=== PATIENT | female | born 1955 | race Caucasian/White ===

== ENCOUNTER 2025-02-20 12:53 | Outpatient (AMB) | payer MEDICARE, SELFPAY ==
--- NOTE | 2025-02-20 13:26 | MHC.OFFVIS ---
Intake Visit Reasons: AD HPI Comments Details: The patient is a 69-year-old female establishing care with a new neurologist for progressive memory loss. Her daughter reports that symptoms began approximately two years ago with increased frequency of misplacing items, which caused the patient distress. About a year and a half ago, the patient experienced an acute episode where she awoke with no memory of the previous day, prompting a hospital visit. She was initially seen at [facility] in [place] and then transferred to [facility] in [place], [place], where she underwent extensive testing and was diagnosed with transient global amnesia. Subsequent testing has reportedly been indicative of mild dementia. The patient was previously evaluated at [facility] as a potential candidate for an infusion therapy. However, she did not proceed with the treatment due to logistical challenges and because the clinician at the time suggested the benefits would not be significant enough. 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 Her family is seeking to establish care with a neurologist in case her condition progresses, but is not necessarily seeking more testing or treatment at this time. Past workup included a PET scan and neuropsychological testing. She has no history of alcohol or recreational drug use. 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 Review of Systems Narrative Constitutional:?No fever, chills, fatigue, weight loss, or night sweats. HEENT:? Complain of sinus problems Cardiovascular:?No chest pain, palpitations, orthopnea, PND, or leg swelling. Respiratory:?No cough, shortness of breath, wheezing, or hemoptysis. Gastrointestinal:? Complain of constipation Genitourinary:?No dysuria, frequency, incontinence, or hematuria. Musculoskeletal:? Complain of joint pains Neurological:? Complain of forgetfulness and headaches Psychiatric:?No anxiety, depression, mood swings, sleep disturbance, or hallucinations. Endocrine:?No heat/cold intolerance, polydipsia, polyuria, or hair/skin changes. Hematologic/Lymphatic:? Complain of bruising Integumentary (Skin):? Complain of rash Allergic/Immunologic:?No seasonal allergies, hives, or recurrent infections. Physical Exam Neuro Other: Mental Status: Alert and oriented to person, place, and time. Normal attention. Normal spontaneous speech, fluency, and comprehension. No obvious issues with mood and memory. Affect is appropriate. Raymond assessment score was 19, mini-mental status score was 26. Cranial Nerves: CN II: Visual wyatt full to confrontation, visual acuity intact. CN III, IV, : Pupils equal, round, reactive to light and accommodation. Extraocular movements are normal. CN V: Facial sensation is normal. CN VII: Facial movements symmetrical. CN VIII: Hearing intact to bedside conversation is normal. CN IX, X: Palate elevates symmetrically. CN XI: Shoulder shrug and head turn symmetrical. CN XII: Tongue midline without atrophy or fasciculations. Motor: Bulk and tone normal in all extremities. No significant muscle weakness in arms and legs. No drift. Reflexes: Deep tendon reflexes 2+ and symmetric. Plantar response down-going bilaterally. Coordination: Qcubyv-hy-xrqb and dnyy-ot-resy testing normal. No dysmetria. Gait and Station: No obvious gait abnormality. No ataxia or instability. Sensory: Intact to light touch, pinprick, and vibration. Romberg is negative. Extrapyramidal: Full facial expressions and blinking. No rigidity. Movements are appropriate with no tremor or abnormality. Speech: Normal; no dysarthria or tremor. Assessment & Plan Assessment & Plan (1) Alzheimer disease: Code(s): G30.9 - Alzheimer's disease, unspecified; F02.80 - Dementia in other diseases classified elsewhere, unspecified severity, without behavioral disturbance, psychotic disturbance, mood disturbance, and anxiety Category: Medical Plan Impression: Alzheimer dementia Recommendations: I discussed with the patient and her daughter, who is her healthcare proxy, that the patient's presentation is highly suggestive of Alzheimer's disease. I explained that while she did not proceed with infusion therapy in the past, I believe she is an ideal candidate for such treatment now, as it can slow the progression of the disease. I outlined that before starting any therapy, I must review her prior brain MRI and PET scan to confirm the diagnosis, which is a requirement for these new medications. I described the treatment as a once-monthly IV infusion and detailed the potential risks, including a 3-6% risk of stroke-like lesions, which are often asymptomatic. My strong recommendation is to pursue this treatment to slow her decline, but the final decision rests with her and her family. I also addressed the patient's mood and frustration related to her cognitive deficits by prescribing sertraline 25 mg daily. We will meet in one to two weeks to review her records and finalize our plan. Medications: New sertraline 25 mg PO DAILY 90 tabs 0RF Coding Level of Care Code New Pt Level 5 (14028) Diagnoses Alzheimer disease G30.9; F02.80 Time Spent (min) 60
== END 2025-02-20 14:05 | disposition home or self-care (01) ==
LOC: HO.HSM 12:53
PROVIDERS: PCP Nurse Practitioner; Visit Provider Psychiatry & Neurology Neurology
DX: G30.9 Alzheimer's disease, unspecified (principal); F02.80 Dementia in other diseases classified elsewhere, unspecified severity, without behavioral disturbance, psychotic disturbance, mood disturbance, and anxiety
CPT/HCPCS: 99205

== ENCOUNTER → 2025-02-20 12:53 | Outpatient (BNVA) | payer MEDICARE, SELFPAY | PROVIDERS: PCP Nurse Practitioner; Visit Provider Psychiatry & Neurology Neurology | DX: G30.9 Alzheimer's disease, unspecified (principal); F02.83 Dementia in other diseases classified elsewhere, unspecified severity, with mood disturbance | CPT/HCPCS: 99202 ==

== ENCOUNTER 2025-02-28 10:14 | Outpatient (REF) | payer MEDICARE, SELFPAY ==
[2025-02-28 13:08] LABS: Alanine Aminotransferase 23 U/L (0-31); Albumin Level 4.6 g/dL (3.5-5.0); Alkaline Phosphatase 54 U/L (39-117); Anion Gap 12 (12-20); Aspartate Amino Transferase 26 U/L (5-31); Blood Urea Nitrogen 15 mg/dL (9-16); Calcium 9.2 mg/dL (8.4-10.2); Carbon Dioxide 27 mmol/L (22-29); Chloride 106 mmol/L (96-108); Estimated Glomerular Filt Rate 57; Potassium 3.9 mmol/L (3.3-5.1); Sodium 141 mmol/L (135-145); Total Protein 7.1 g/dL (6.5-8.0)
[2025-02-28 13:16] LABS: Thyroid Stimulating Hormone 0.59 uIU/mL (0.32-4.0)
[2025-02-28 13:37] LABS: Folate > 20.0 ng/mL (> or = 4.0); Vitamin B12 890 pg/mL (200-900)
== END 2025-02-28 10:15 | disposition home or self-care (01) ==
LOC: HO.LAB 10:14
PROVIDERS: PCP Nurse Practitioner; Visit Provider Psychiatry & Neurology Neurology
DX: G30.0 Alzheimer's disease with early onset (principal); F02.84 Dementia in other diseases classified elsewhere, unspecified severity, with anxiety
CPT/HCPCS: 36415; 80048; 80076; 82542; 82607; 82746; 84443

== ENCOUNTER 2025-02-28 10:14 | Outpatient (AMB) | payer MEDICARE, SELFPAY ==
--- NOTE | 2025-02-28 10:36 | MHC.OFFVIS ---
Intake Visit Reasons: follow up Allergies lovastatin (From Mevacor) Adverse Reaction (Mild, Verified 02/28/25 10:58) Back Pain Sulfa (Sulfonamide Antibiotics) Adverse Reaction (Unknown, Unverified 02/28/25 10:58) Muscle cramps HPI Comments Details: 69 years old woman with Alzheimer dementia with symptoms starting around 2022. She presents for follow-up to discuss imaging results and initiate treatment for Alzheimer's disease. An MRI and PET scan have confirmed the diagnosis of Alzheimer's disease, which is considered to be in the early stages. She recently tried a new medication, which initially caused some dizziness, but she has been advised to continue it at a low dose to help with associated anxiety. She reports generally sleeping well but had one recent night of poor sleep, waking at 4 a.m. Past diagnostic workup includes a PET scan in June and an MRI in October. She was previously considered for a clinical trial for an infusion medication but was not enrolled because genetic testing revealed she has two genes for Alzheimer's. She has a reported allergy to sulfa drugs dating back to childhood, though the specific reaction is unknown. Review of Systems Narrative - Neurological: Reports transient dizziness when starting a new medication. - Psychiatric: Reports anxiety. - Constitutional: Reports one recent episode of waking at 4 a.m. and being unable to return to sleep. - Allergic/Immunologic: Reports allergy to sulfa drugs. Physical Exam Neuro Other: Mental Status: Alert and oriented to person, place, and time. Normal attention. Normal spontaneous speech, fluency, and comprehension. Cranial Nerves: CN II: Visual wyatt full to confrontation, visual acuity intact. CN III, IV, : Pupils equal, round, reactive to light and accommodation. Extraocular movements are normal. CN V: Facial sensation is normal. CN VII: Facial movements symmetrical. CN VIII: Hearing intact to bedside conversation is normal. CN IX, X: Palate elevates symmetrically. CN XI: Shoulder shrug and head turn symmetrical. CN XII: Tongue midline without atrophy or fasciculations. Extrapyramidal: Full facial expressions and blinking. No rigidity. Movements are appropriate with no tremor or abnormality. Speech: Normal; no dysarthria or tremor. 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 Code(s): G30.9 - Alzheimer's disease, unspecified; F02.80 - Dementia in other diseases classified elsewhere, unspecified severity, without behavioral disturbance, psychotic disturbance, mood disturbance, and anxiety Category: Medical Plan The patient's MRI and PET scan results confirm a diagnosis of early-stage Alzheimer's disease. Though she was previously excluded from a clinical trial due to her genetic profile, she is a candidate for FDA-approved infusion therapies. It is recommended to initiate monthly infusions with Kisunla to slow disease progression. Risk of this type of treatment included stroke, brain bleed, which could be disabling or fatal were discussed. Chances of that was about 3-6%, based upon her genetic profile and I have ordered test for AP-E profile. Alternate would be not to treat with this type of medicine in which case this is a progressive illness resulting in worsening of cognitive symptoms. With this type of medicine, about 1/3 slowing can be expected. Prior to starting, the patient and her healthcare proxy will provide consent. Immediate lab work, including blood counts, liver functions, B12, and folate levels, will be ordered today, as these are required for insurance approval. A gene test will also be ordered to better quantify the risk associated with the medication and guide monitoring frequency. Treatment will involve a series of monitoring MRIs; if the patient's MRI from October is not sufficient, a new one will be obtained. Each MRI will be reviewed before clearing the next infusion, and the treatment will be held if any stroke-like changes are observed. The expected duration of treatment is 6-12 months, after which a repeat PET scan may be considered to evaluate for clearance. A follow-up appointment is scheduled for 4-6 months. Orders: Orders Vitamin B12 and Folate Today F02.80 - Dementia in other diseases classified elsewhere, unspecified severity, without behavioral disturbance, psychotic disturbance, mood disturbance, and anxiety, G30.9 - Alzheimer's disease, unspecified Liver Panel Today F02.80 - Dementia in other diseases classified elsewhere, unspecified severity, without behavioral disturbance, psychotic disturbance, mood disturbance, and anxiety, G30.9 - Alzheimer's disease, unspecified Thyroid Stimulating Hormone Today F02.80 - Dementia in other diseases classified elsewhere, unspecified severity, without behavioral disturbance, psychotic disturbance, mood disturbance, and anxiety, G30.9 - Alzheimer's disease, unspecified Basic Metabolic Panel Today F02.80 - Dementia in other diseases classified elsewhere, unspecified severity, without behavioral disturbance, psychotic disturbance, mood disturbance, and anxiety, G30.9 - Alzheimer's disease, unspecified Other Ref Test - Misc Today F02.80 - Dementia in other diseases classified elsewhere, unspecified severity, without behavioral disturbance, psychotic disturbance, mood disturbance, and anxiety, G30.9 - Alzheimer's disease, unspecified Referrals [facility] Notification F02.80 - Dementia in other diseases classified elsewhere, unspecified severity, without behavioral disturbance, psychotic disturbance, mood disturbance, and anxiety, G30.9 - Alzheimer's disease, unspecified Coding Level of Care Code Est Pt Level 5 (45590) Diagnoses Alzheimer disease G30.9; F02.80 Time Spent (min) 45
--- OUTSIDE RECORDS SUMMARY | 2025-02-28 12:35 | XMS_ITS | Encounter Summary ---
Author Organization [facility] Address [address] [place] [address] Care Team Providers Care Stock Or Delivery Clerk Name Role Phone Jackie Donovan ELIGIBILITY EXAMINER Primary Care Provider [phone] Encounter Details Date Type Department Care Team (Late st Contact Info) Description 01/11/2023 Scanned Document Orthopedic [address] [address] Peter Avina MD [address] [place] [phone] Social History Tobacco Use Types Packs/Day Years Used Date Smoking Tobacco: Never Assessed Comments Unknown Sex and Gender Information Value Date Recorded Sex Assigned at Female 01/05/2023 11:37 AM EDT Legal Sex Female 8:46 PM EDT Gender Identity Female 01/05/2023 11:37 AM EDT Sexual Orientation Not on file documented as of this encounter Plan of Treatment Upcoming Encounters Date Type Department Care Team (Late st Contact Info) Description 01/17/2026 10:15 AM EST Office Visit Orthopedic [address] [address] Peter Avina MD [address] [place] [phone] documented as of this encounter Visit Diagnoses Not on filedocumented in this encounter Care Teams Stock Or Delivery Clerk Relationship Specialty Start Date End Date Jackie Donovan ELIGIBILITY EXAMINER [address] [place] [phone] PCP - General 11/05/22 documented as of this encounter
--- OUTSIDE RECORDS SUMMARY | 2025-02-28 12:35 | XMS_ITS | Clinical Summary ---
Author Organization [facility] Address [address] [place] [address] Care Team Providers Care Cottage Supervisor Name Role Phone Jackie Donovan Primary Care Provider [phone] Allergies Active Allergy Reactions Criticality Noted Date Comments Lovastatin Muscle Pain,Other (see comments) 03/01/2014 Other reaction(s): Other (See Comments) Muscle pain Muscle pain Nitrofurantoin Rash 09/22/2023 Other reaction(s): Rash Rash Rash Simvastatin Muscle Pain 09/22/2023 Sulfa (Sulfonamide Antibiotics) Rash,Unknown Low 01/06/2023 Medications diclofenac (VOLTAREN) 1% gel Apply topically to the affected area. 4 Active memantine (NAMENDA) 5 mg tablet SMARTSI Tablet(s) By Mouth Twice Daily Active pravastatin (PRAVACHOL) 80 mg tablet Take 80 mg by mouth. 5 Active multivitamin (THERAGRAN) tablet Take 1 tablet by mouth once a day. Active PATIENT REPORTED OTC MEDICATION Medication Name: Focus factor This entry is to document a patient-reporte d over the counter medication. Please do not continue this order for inpatient use. Active psyllium seed, sugar, (Metamucil, sugar,) powder Take by mouth. Active estradioL (ESTRACE) 0.01 % (0.1 mg/gram) vaginal cream Insert 2 g into the vagina 2 times a day. Active cholecalciferol (VITAMIN D3) 1,000 unit tablet Take 1,000 Units by mouth once a day. Active ascorbic acid (VITAMIN C) 500 mg tablet Take 500 mg by mouth 2 times a day. Active aspirin 81 mg EC tablet Take by mouth once a day. Active Family History Medical History Relation Name Comments Throat cancer Brother 1 Agent orange e xposure Skin cancer Brother 2 Factor V Leiden deficiency Brother 3 Tremor Brother 3 Has an implant in his brain Lung cancer Father Diabetes type II Mother Other Mother Had a club foot . Had polio as a child. Relation Name Status Comments Brother 1 Brother 2 Alive Brother 3 Alive Father Maternal Grandfather Maternal Grandmother Mother Paternal Grandfather Paternal Grandmother Social History Tobacco Use Types Packs/Day Years Used Date Smoking Tobacco: Former Cigarettes Smokeless Tobacco: Never Tobacco Cessation:Counseling Given: Not Answered Alcohol Use Standard Drinks/Week Comments Yes 0 (1 standard drink = 0.6 oz pur e alcohol) 1 beer once rarely Comments Unknown Sex and Gender Information Value Date Recorded Sex Assigned at Female 08/08/2024 10:22 AM EDT Legal Sex Female 10:20 AM EDT Gender Identity Not on file Sexual Orientation Not on file Last Filed Vital Signs Vital Sign Reading Time Taken Comments Blood Pressure 130/85 09/29/2024 3:19 PM EDT Pulse 62 09/29/2024 3:19 PM EDT Temperature 36.9 C (98.4 F) 09/29/2024 3:19 PM EDT Respiratory Rate 18 09/29/2024 3:19 PM EDT Oxygen Saturation 100% 09/29/2024 3:19 PM EDT Inhaled Oxygen Concentration - - Weight 59 kg (130 lb) 09/29/2024 3:19 PM EDT Height - - Body Mass Index - - Plan of Treatment Health Maintenance Due Date Last Done Comments Cologyelena 1954 Colon Cancer Screening 1954 Colonoscopy 1954 FOBT / Fit Test 1954 Hepatitis C Screening 1954 Sigmoidoscopy 1954 DTaP,Tdap,and Td Vaccines (1 - Tdap) [address] Lung Cancer Screening (Baseline) 2004 Osteoporosis Screening 2004 Pneumococcal Vaccine: 50+ Ye ars (1 of 1 - PCV) 2004 Zoster Vaccines (1 of 2) 2004 Alcohol/Substance Use Screening 03/15/2024 Depression Screening and Follow-Up 03/15/2024 Health Care Proxy Review 03/15/2024 Social Drivers of Health Diamond ual Screening 03/15/2024 Influenza Vaccine (#1) 2024 COVID-19 Vaccine (2 - 2024-2 6 season) 2024 10/08/2020 Fall Risk Screening 08/15/2025 08/15/2024 RSV Vaccine (60+ years old a nd patients) (1 - 1-dose 75+ series) 2029 Hepatitis B Vaccines Aged Out No long er eligible based on patient's age to complete this topic Insurance [employer] [facility] Care Teams Cottage Supervisor Relationship Specialty Start Date End Date Jackie Donovan [address] [place] [address] PCP - General 08/08/24
--- OUTSIDE RECORDS SUMMARY | 2025-02-28 12:35 | XMS_ITS | Encounter Summary ---
Author Organization [facility] Address [address] [place] [address] Care Team Providers Care Brake Lining Curer Name Role Phone Jackie Donovan THERAPY TEACHER Primary Care Provider [phone] Encounter Details Date Type Department Care Team (Late st Contact Info) Description 01/07/2023 Scanned Document [facility] [address] [phone] Peter Avina MD [address] [place] [phone] Social History Tobacco Use Types Packs/Day Years [...] 01/17/2026 10:15 AM EST [facility] [address] [phone] Peter Avina MD [address] [place] [phone] documented as of this encounter Visit Diagnoses Not on filedocumented in this encounter Care Teams Brake Lining Curer Relationship Specialty Start Date End Date Jackie Donovan NP [address] [place] [phone] PCP - General 11/05/22 documented as of this encounter
--- OUTSIDE RECORDS SUMMARY | 2025-02-28 12:35 | XMS_ITS | Encounter Summary ---
Author Organization [facility] Address [address] [place] [address] Care Team Providers Care High Tension Tester Name Role Phone Jackie Donovan BODY ROLLING MACHINE TENDER Primary Care Provider [phone] Encounter Details Date Type Department Care Team (Late st Contact Info) Description 12/31/2022 Scanned Document [facility] [address] [phone] Peter Avina MD [address] [place] [phone] Social History Tobacco Use Types Packs/Day Years [...] 10:15 AM EST [facility] [address] [phone] Peter Avina MD [address] [place] [phone] documented as of this encounter Visit Diagnoses Not on filedocumented in this encounter Care Teams High Tension Tester Relationship Specialty Start Date End Date Jackie Donovan, BODY ROLLING MACHINE TENDER [address] [place] [phone] PCP - General 11/05/22 documented as of this encounter
--- OUTSIDE RECORDS SUMMARY | 2025-02-28 12:35 | XMS_ITS | Clinical Summary ---
Author Organization [facility] Prior to 08/12/[address] [place] [address] Care Team Providers Care Diesel Trailer Mechanic Name Role Phone Unavailable Primary Care Provider Unavailabl e Allergies Active Allergy Reactions Criticality Noted Date Comments Lovastatin Other (See Comments) 03/01/2014 Other reaction(s): Other (See Comments) Muscle pain Nitrofurantoin 09/22/2023 Other reaction(s): Rash Rash Simvastatin 09/22/2023 Sulfa Antibiotics Rash Low 01/06/2023 Medications Medication Sig Dispensed Refills Start Date End Date Status buPROPion (WELLBUTRIN) 75 MG tablet Take 1 tablet (75 mg total) by mouth daily. 0 09/06/2023 Active ASPIRIN 81 PO Take 81 mg by mouth daily. 0 10/14/2015 Active pravastatin (PRAVACHOL) tablet 40 mg Take 1 tablet (40 mg total) by mouth daily. 0 07/02/2023 Active Topiramate ER 100 MG CS24 Take 100 mg by mouth daily. 0 09/21/2023 Active valACYclovir (VALTREX) 500 MG tablet Take 1 tablet (500 mg total) by mouth daily. 0 07/03/2023 Active Active Problems Problem Noted Date Diagnosed Date Amnesia 09/22/2023 Social History Tobacco Use Types Packs/Day Years Used Date Smoking Tobacco: Never Smokeless Tobacco: Never Alcohol Use Standard Drinks/Week Comments Not Currently 0 (1 standard drink = 0.6 oz pur e alcohol) Sex and Gender Information Value Date Recorded Sex Assigned at Female 09/22/2023 9:26 AM EDT Gender Identity Not on file Sexual Orientation Not on file Job Start Date Occupation Industry Not on file Not on file Not on file Last Filed Vital Signs Vital Sign Reading Time Taken Comments Blood Pressure 119/63 09/23/2023 1:00 PM EDT Pulse 72 09/23/2023 1:00 PM EDT Temperature 36.6 C (97.9 F) 09/23/2023 1:00 PM EDT Respiratory Rate 18 09/23/2023 1:00 PM EDT Oxygen Saturation 98% 09/23/2023 7:44 AM EDT Inhaled Oxygen Concentration - - Weight 57.6 kg (127 lb) 09/22/2023 8:36 PM EDT Height 160 cm (5' 3 ) 09/22/2023 8:36 PM EDT Body Mass Index 22.5 09/22/2023 8:36 PM EDT Plan of Treatment Health Maintenance Due Date Last Done Comments Hepatitis C Screening 1954 Depression Screening 1966 Preventative Health Evaluation 1972 Colon Cancer Screening (Colonoscopy) 12/23/1999 Breast Cancer Screening (Mammogram) 2004 Shingrix-Zoster Vaccine (1 of 2) 2004 Fall Risk Assessment 12/23/2019 Osteoporosis Screening (DEXA Scan) 12/23/2019 Pneumococcal Vaccine (1 of 1 - PCV) 12/23/2019 DTap / Tdap / Td (1 - Tdap) 02/14/2023 02/13/2023 COVID-19 Vaccine (2 - 2024-2 6 season) 2024 10/08/2020 Influenza Vaccine (#1) 2024 RSV Adult > 60+ Yrs or Pregn ant (1 - 1-dose 75+ series) 2029 Hepatitis B Vaccines Aged Out No long er eligible based on patient's age to complete this topic RSV Ped < 20 months Aged Out No longe r eligible based on patient's age to complete this topic Advance Directives For more information, please contact: [phone] Latest Code Status on File Code Status Date Activated Date Inactivated Comments Full Code 09/22/2023 7:35 PM 09/23/2023 10:36 PM This code status was ascertained in the following way: discussion with patient .
--- OUTSIDE RECORDS SUMMARY | 2025-02-28 12:35 | XMS_ITS | Clinical Summary ---
Author Organization [employer] [facility] Address [address] [place] [address] Care Team Providers Care Tooling Mechanic Name Role Phone Kelly Chaudhari Primary Care Provider U navailable Immunizations Immunization Administration Dates Next Due IKER/Cleopatra SARS-CoV-2 COVID -19, vector-nr, [id number], preservative free 10/08/2020 Surgical History Surgery Date Site/Laterality Comments TOTAL KNEE ARTHROPLASTY 12/2022 Right PROCEDURE:REPLACEMENT TOTAL KNEE Medical History Medical History Date Comments Migraine DX:Migraine Depression DX:Depression Anxiety DX:Anxiety Social History Tobacco Use Types Packs/Day Years Used Date Smoking Tobacco: Never Smokeless Tobacco: Never Alcohol Use Standard Drinks/Week Comments Not Currently 0 (1 standard drink = 0.6 oz pur e alcohol) Comments Unknown Sex and Gender Information Value Date Recorded Sex Assigned at Not on file Legal Sex Female 5:07 PM EST Gender Identity Not on file Sexual Orientation Not on file Plan of Treatment Health Maintenance Due Date Last Done Comments Breast Cancer Screening 1955 Colorectal Cancer Screening: Colonoscopy 1955 DTaP,Tdap,and Td Vaccines (1 - Tdap) 1973 Pneumococcal Vaccine: 50+ Years (1 of 1 - PCV) 2004 Zoster Vaccines (1 of 2) 2004 Falls Risk Assessment 12/27/2023 Hepatitis C Screening 12/27/2023 Osteoporosis Screening (Bone Density Screening) 12/27/2023 Social Influencers of Health Screening 12/27/2023 Depression Screening 03/15/2024 COVID-19 Vaccine (2 - 2024-2 6 season) 2024 10/08/2020 Influenza Vaccine (#1) 2024 Cholesterol Screening (Lipid Panel) 09/22/2028 09/23/2023, 09/23/2023 RSV Immunization Adult Patients (1 - 1-dose 75+ series) 2029 HIB Vaccines Aged Out No longer eligi ble based on patient's age to complete this topic HPV Vaccines Aged Out No longer eligi ble based on patient's age to complete this topic Hepatitis A Vaccines Aged Out No long er eligible based on patient's age to complete this topic Hepatitis B Vaccines Aged Out No long er eligible based on patient's age to complete this topic IPV Vaccines Aged Out No longer eligi ble based on patient's age to complete this topic MMR Vaccines Aged Out No longer eligi ble based on patient's age to complete this topic Meningococcal ACWY Vaccine Aged Out N o longer eligible based on patient's age to complete this topic Meningococcal B Vaccine Aged Out No l onger eligible based on patient's age to complete this topic RSV Immunization Patients Under 20 months Aged Out No longer eligible b ased on patient's age to complete this topic Varicella Vaccines Aged Out No longer eligible based on patient's age to complete this topic Care Teams Tooling Mechanic Relationship Specialty Start Date End Date Kelly Chaudhari PA PCP - General Internal Medicine 02/11/18
--- OUTSIDE RECORDS SUMMARY | 2025-02-28 12:35 | XMS_ITS ---
Author Name [facility] Organization Unknown Results Test Name/Text Value Interpretation Date Range Source TRIGL SERPL-MCNC 114.0 mg/dL Normal 09/23/2023 - 150 [facility] CHOLEST SERPL-MCNC 203.0 mg/dL Above high normal 09/23/2023 0 - 200 [facility] HDLC SERPL-MCNC 66.0 mg/dL Normal 09/23/2023 35 - 96 [facility] LDLc SerPl Calc-mCnc 114.0 mg/dL Normal 09/23/2023 50 - 130 [facility] POTASSIUM SERPL SCNC 3.7 mmol/L Normal 09/23/2023 3.5 - 5.1 [facility] Glomerular filtration rate/1.73 sq M. predicted 94.0 Normal 09/23/2023 60 - [facility] CALCIUM SERPL MCNC 9.0 mg/dL Normal 09/23/2023 8.4 - 10.2 [facility] ANION GAP SERPL SCNC 9.0 mmol/L Normal 09/23/2023 5 - 14 [facility] HCO3 SER SCNC 26.0 mmol/L Normal 09/23/2023 24 - 32 [facility] BUN SERPL MCNC 18.0 mg/dL Above high normal 09/23/2023 7 - 1 7 [facility] CHLORIDE SERPL SCNC 107.0 mmol/L Normal 09/23/2023 98 - 107 [facility] GLUCOSE SERPL MCNC 81.0 mg/dL Normal 09/23/2023 70 - 199 [facility] SODIUM SERPL SCNC 142.0 mmol/L Normal 09/23/2023 135 - 14 5 [facility] CREAT SERPL MCNC 0.7 mg/dL Normal 09/23/2023 0.5 - 1 [facility] MCH RBC QN AUTO 31.7 pg Normal 09/23/2023 25 - 33 [facility] RBC NO. BLD AUTO 3.97 M/uL Below low normal 09/23/2023 4.2 - 5.4 [facility] WBC NO. BLD AUTO 7.4 K/uL Normal 09/23/2023 4 - 10.5 [facility] HCT VFR BLD AUTO 37.2 % Normal 09/23/2023 37 - 47 [facility] MCHC RBC AUTO MCNC 33.9 g/dL Normal 09/23/2023 32 - 36 [facility] PLATELET NO. BLD AUTO 231.0 K/uL Normal 09/23/2023 150 - 450 [facility] PMV BLD AUTO 8.4 fL Normal 09/23/2023 7.4 - 11.4 [facility] VICKIE HGB BLD MCNC 12.6 g/dL Normal 09/23/2023 12.5 - 16 [facility] RDW RBC AUTO RTO 12.6 % Normal 09/23/2023 12.1 - 16.2 [facility] MCV RBC AUTO 93.6 fL Normal 09/23/2023 78 - 100 [facility] MAGNESIUM SERPL MCNC 1.9 mg/dL Normal 09/23/2023 1.7 - 2.8 [facility] TSH SerPl DL<=0.005 mIU/L-aCnc 2.29 uIU/mL Normal 09/23/2023 0.45 - 5.33 [facility] Hgb A1c MFr Bld HPLC 5.7 % Above high normal 09/23/2023 - 5.7 [facility] ESR Bld Qn Photometric 6.0 mm/h Normal 09/23/2023 0 - 20 [facility] VIT B12 SER MCNC 513.0 pg/mL Normal 09/23/2023 180 - 914 [facility] RBC number/area UrnS Auto 4.0 /HPF Above high normal 09/22/2023 0 - 3 [facility] SQUAMOUS NO./AREA URNS LPF 2.0 /LPF Normal 09/22/2023 0 - 5 [facility] CRYSTALS URNS MICRO Amorphous urate Abnormal 09/22/2023 - [facility] WBC number/area UrnS Auto 1.0 /HPF Normal 09/22/2023 0 - 5 [facility] Glucose Ur Ql Strip.auto NEGATIVE Normal 09/22/2023 - [facility] Leukocyte esterase Ur Ql Strip.auto NEGATIVE Normal 09/22/2023 - [facility] Prot Ur Ql Strip.auto NEGATIVE Normal 09/22/2023 - [facility] Sp Gr Ur Strip.auto 1.015 Normal 09/22/2023 1.005 - 1.03 [facility] Ketones Ur Ql Strip.auto NEGATIVE Normal 09/22/2023 - [facility] pH Ur Strip.auto 7.0 Normal 09/22/2023 4.5 - 8 CT [facility] Nitrite Ur Ql Strip.auto NEGATIVE Normal 09/22/2023 - [facility] Hgb Ur Ql Strip.auto TRACE Abnormal 09/22/2023 - [facility] Clarity Ur Refract.auto CLEAR Normal 09/22/2023 [facility] SPECIMEN SOURCE XXX URINE CLEAN CATCH Normal 09/22/2023 [facility] LIPASE SERPL CCNC 18.0 U/L Normal 09/22/2023 11 - [facility] 0.6 mg/dL Normal 09/22/2023 0.3 - 1 [facility] DIRECT SERPL MCNC 0.1 mg/dL Normal 09/22/2023 0 - 0.2 [facility] PT TIME PPP 10.9 sec Normal 09/22/2023 10.5 - 13.3 [facility] INR PPP 0.9 Normal 09/22/2023 0.8 - 1.1 [facility] ALT SERPL CCNC 27.0 U/L Normal 09/22/2023 7 - 52 [facility] AST SERPL CCNC 23.0 U/L Normal 09/22/2023 5 - 40 [facility] ALP SERPL-CCNC 63.0 U/L Normal 09/22/2023 34 - [facility] L TO P CCNC 169.0 U/L Normal 09/22/2023 125 - 220 [facility] BASOPHILS NFR BLD AUTO 0.4 % Normal 09/22/2023 0 - 2 [facility] NEUTROPHILS NFR BLD AUTO 73.0 % Normal 09/22/2023 44 - 74 [facility] IMMATURE GRANULOCYTE, PERCENT 0.4 % Normal 09/22/2023 0 - 1 [facility] BASOPHILS IN BLOOD BY AUTOMATED COUNT 0.0 K/uL Normal 09/22/2023 0 - 0.2 [facility] MONOCYTES NO. BLD AUTO 0.5 K/uL Normal 09/22/2023 0 - 0.8 [facility] EOSINOPHIL NFR BLD AUTO 0.4 % Normal 09/22/2023 0 - 6 [facility] WBC NO. BLD AUTO 8.5 K/uL Normal 09/22/2023 4 - 10.5 [facility] RDW RBC AUTO RTO 12.1 % Normal 09/22/2023 12.1 - 16.2 [facility] MCV RBC AUTO 93.5 fL Normal 09/22/2023 78 - 100 [facility] HGB BLD MCNC 12.7 g/dL Normal 09/22/2023 12.5 - 16 [facility] NUCLEATED RBC 0.0 % Normal 09/22/2023 0 - [facility] RBC AUTO MCNC 32.8 g/dL Normal 09/22/2023 32 - 36 [facility] EOSINOPHIL NO. BLD AUTO 0.0 K/uL Normal 09/22/2023 0 - 0.5 [facility] MCH RBC QN AUTO 30.7 pg Normal 09/22/2023 25 - 33 [facility] IMMATURE GRANULOCYTE, ABSOLUTE 0.03 k/uL Normal 09/22/2023 - 0.1 [facility] LYMPHOCYTES NO. BLD AUTO 1.7 K/uL Normal 09/22/2023 1 - 3.2 [facility] PLATELET NO. BLD AUTO 253.0 K/uL Normal 09/22/2023 150 - 450 [facility] NEUTROPHILS NO. BLD AUTO 6.2 K/uL Normal 09/22/2023 1.8 - 7.8 [facility] HCT VFR BLD AUTO 38.7 % Normal 09/22/2023 37 - 47 [facility] RBC NO. BLD AUTO 4.14 M/uL Below low normal 09/22/2023 4.2 - 5.4 [facility] PMV BLD AUTO 9.7 fL Normal 09/22/2023 7.4 - 11.[facility] MONOCYTES NFR BLD AUTO 5.9 % Normal 09/22/2023 2 - 12 [facility] LYMPHOCYTES NFR BLD AUTO 19.9 % Below low normal 09/22/2023 20 - 48 [facility] BUN SERPL MC[facility] 19.0 mg/dL Above high normal 09/22/2023 7 - 1 7 [facility] POTASSIUM [facility]PL SCNC 3.8 mmol/L Normal 09/22/2023 3.5 - 5.1 [facility] SODIUM [facility]PL SC[facility] 139.0 mmol/L Normal 09/22/2023 135 - 14 5 [facility] CREAT SERPL MCNC 0.9 mg/dL Normal 09/22/2023 0.5 - 1 CT [facility] CALCIUM SERPL MCNC 9.6 mg/dL Normal 09/22/2023 8.4 - 10.2 [facility] CHLORIDE [facility]PL SCNC 103.0 mmol/L Normal 09/22/2023 98 - 107 [facility] Glomerular filtration rate/1.73 sq M. predicted 70.0 Normal 09/22/2023 60 - [facility] HCO3 SER SCNC 28.0 mmol/L Normal 09/22/2023 24 - 32 [facility] GLUCOSE SERPL MCNC 111.0 mg/dL Normal 09/22/2023 70 - 199 [facility] ANION GAP SERPL SCNC 8.0 mmol/L Normal 09/22/2023 5 - 14 [facility] AMYLASE SERPL CC[facility] 28.0 U/L Below low normal 09/22/2023 29 - 103 [facility] GLUCOSE BLDC GLUCOMTR MCNC 109.0 mg/dL Normal 09/22/2023 70 - 199 [facility] History of Medication Use Medication Directions Dispensed Refills Start Date End Date Status amoxicillin-clavu lanate (AUGMENTIN) 875-125 MG per tablet Take 1 tablet by mouth 2 (two) times a day. 4 01/28/20 24 active diclofenac (VOLTAREN) 1 % gel Apply topically 4 (four) times a day. Use dosing card to measure dose. Apply to entire affect area. 4 active LORazepam (ATIVAN) 2 MG/ML injection 1 mg 1 mg, Intravenous, Once as needed, prior to MRI, Starting on Wed09/23/23 at 0209, For 1 dose 4 09/23/19 24 completed melatonin 3 MG tablet 3 mg 3 mg, Oral, Once, On Wed09/22/23 at 2345, For 1 dose 4 09/23/19 24 completed enoxaparin (LOVENOX) syringe 40 mg 40 mg, Subcutaneous, Every 24 hours scheduled (Daily), First dose on Wed09/23/23 at 0900Administer in abdomen (at least 2 inches from navel) 4 active pravastatin (PRAVACHOL) tablet 40 mg 40 mg, Oral, Daily, First dose on Wed09/23/23 at 0900 4 active acetaminophen (TYLENOL) tablet 975 mg 975 mg, Oral, Once, On Wed09/22/23 at 1200, For 1 dose 4 09/22/19 completed iopamidol (ISOVUE-370) 76 % injection 0-150 mL 0-150 mL, Intravenous, IMG once as needed, contrast, Starting on Wed09/22/23 at 0926, For 1 dose, Radiology Contrast 4 09/22/19 completed acetaminophen (TYLENOL) tablet 650 mg 650 mg, Oral, Every 6 hours PRN, mild pain (1-3), moderate pain (4-6), headaches, fever, Starting on Wed09/22/23 at 1935 4 active Topiramate ER 100 MG CS24 Take 100 mg by mouth daily. 4 active buPROPion (WELLBUTRIN) 75 MG tablet Take 1 tablet (75 mg total) by mouth daily. 4 active buPROPion (WELLBUTRIN) tablet 75 mg 75 mg, Oral, Daily, First dose on Wed09/23/23 at 0900 4 active predniSONETake 2 tab let (oral) 1 time per day for 5 [id number] time per [id number] 4 active valACYclovir (VALTREX) tablet 500 mg 500 mg, Oral, Daily, First dose on Wed09/23/23 at 0900 4 active pravastatin (PRAVACHOL) tablet 40 mg Take 1 tablet (40 mg total) by mouth daily. 4 active doxycycline hyclateT kesha 1 capsule (Oral) 2 times per day for 10 [id number] times per [id number] 00mg 4 suspended amoxicillin-pot clavulanateTake 1 Tablet (oral) every 12 hours for 7 [id number] 12 [id number] 875-125mg 3 suspended traMADol (ULTRAM) 50 MG tablet Take 1 tablet (50 mg total) by mouth 4 times daily (every 6 hours) as needed for moderate pain or severe pain. 3 03/19/19 24 active rivaroxaban (XARELTO) 10 MG tablet Take 1 tablet (10 mg total) by mouth daily. 3 09/22/19 24 aborted rivaroxaban (XARELTO) 10 MG tablet Take 1 tablet (10 mg total) by mouth daily. 3 active rivaroxaban (XARELTO) 10 MG tablet Take 1 tablet (10 mg total) by mouth daily. 3 active cephalexin (KEFLEX) 500 MG capsule Take 1 capsule (500 mg total) by mouth See Admin Instructions. Take 1 tablet when you get home, 1 before bed and 1 in the morning. 3 01/17/20 24 active meloxicam (MOBIC) 15 MG tablet TAKE 1 TABLET (15 MG TOTAL) BY MOUTH DAILY. 3 12/13/19 24 active aspirin enteric coated (ECOTRIN LOW STRENGTH) 81 MG EC tablet Take 1 tablet (81 mg total) by mouth daily. 3 03/19/19 24 active methocarbamol (ROBAXIN) 750 MG tablet Take 1 tablet (750 mg total) by mouth 4 (four) times a day as needed for muscle spasms. 3 03/19/19 24 active HYDROmorphone (DILAUDID) 2 MG tablet Take 1 tablet (2 mg total) by mouth 4 times daily (every 6 hours) as needed (pain). Max Daily Amount: 8 mg 3 01/21/20 23 active ondansetron (ZOFRAN) 4 MG tablet Take 1 tablet (4 mg total) by mouth 3 times daily (every 8 hours) as needed for nausea or vomiting. 3 active senna-docusate (SENNA-S) 8.6-50 MG Take 2 tablets by mouth nightly as needed for constipation. 3 active SUPPLY DME MISC RAISED TOILET SEAT C ANE DURATION: 99 3 active AugmentinTake 1 tabl et (oral) 2 times per day for 10 [id number] times per [id number] 75-125mg 3 suspended ASPIRIN 81 PO Take 81 mg by mouth daily. 6 active TopamaxTakeNo date recordedNo form recordedNo frequency recordedNo route recordedNo set duration recordedNo set duration amount recordedsuspendedNo dosage strength recordedNo dosage strength units of measure recorded suspended atogepantTakeNo date recordedNo form recordedNo frequency recordedNo route recordedNo set duration recordedNo set duration amount recordedactiveNo dosage strength recordedNo dosage strength units of measure recorded active atogepantTakeNo date recordedNo form recordedNo frequency recordedNo route recordedNo set duration recordedNo set duration amount recordedactiveNo dosage strength recordedNo dosage strength units of measure recorded active TopamaxTakeNo date recordedNo form recordedNo frequency recordedNo route recordedNo set duration recordedNo set duration amount recordedsuspendedNo dosage strength recordedNo dosage strength units of measure recorded suspended aspirinTakeNo date recordedNo form recordedNo frequency recordedNo route recordedNo set duration recordedNo set duration amount recordedactiveNo dosage strength recordedNo dosage strength units of measure recorded active pravastatinTakeNo da te recordedNo form recordedNo frequency recordedNo route recordedNo set duration recordedNo set duration amount recordedactiveNo dosage strength recordedNo dosage strength units of measure recorded active Calcium 500 + DTakeN o date recordedNo form recordedNo frequency recordedNo route recordedNo set duration recordedNo set duration amount recordedactiveNo dosage strength recordedNo dosage strength units of measure recorded active acyclovirTakeNo date recordedNo form recordedNo frequency recordedNo route recordedNo set duration recordedNo set duration amount recordedactiveNo dosage strength recordedNo dosage strength units of measure recorded active acyclovirTakeNo date recordedNo form recordedNo frequency recordedNo route recordedNo set duration recordedNo set duration amount recordedactiveNo dosage strength recordedNo dosage strength units of measure recorded active Tenivac (PF)No directions recordedNo date recordedsyringeNo frequency recordedNo route recordedNo set duration recordedNo set duration amount recordedactive5-2Lf unit/0.5 mL active Calcium 500 + DTakeN o date recordedNo form recordedNo frequency recordedNo route recordedNo set duration recordedNo set duration amount recordedactiveNo dosage strength recordedNo dosage strength units of measure recorded active pravastatinTakeNo da te recordedNo form recordedNo frequency recordedNo route recordedNo set duration recordedNo set duration amount recordedactiveNo dosage strength recordedNo dosage strength units of measure recorded active EstroGelTakeNo date recordedNo form recordedNo frequency recordedNo route recordedNo set duration recordedNo set duration amount recordedactiveNo dosage strength recordedNo dosage strength units of measure recorded active EstroGelTakeNo date recordedNo form recordedNo frequency recordedNo route recordedNo set duration recordedNo set duration amount recordedactiveNo dosage strength recordedNo dosage strength units of measure recorded active atogepantTakeNo date recordedNo form recordedNo frequency recordedNo route recordedNo set duration recordedNo set duration amount recordedactiveNo dosage strength recordedNo dosage strength units of measure recorded active aspirinTakeNo date recordedNo form recordedNo frequency recordedNo route recordedNo set duration recordedNo set duration amount recordedactiveNo dosage strength recordedNo dosage strength units of measure recorded active Allergies Allergen Reaction Severity Comment Documented Date Source Status SIMVASTATIN 09/22/2023 [facility] active SULFAMETHOXAZOLE-TR IMETHOPRIM 09/22/2023 [facility] active SULFA ANTIBIOTICS RASH/DERMATITI S 01/06/2023 [facility] active NITROFURANTOIN Other reaction(s) : Rash,Rash [facility] LOVASTATIN OTHER (SEE COMMENTS)OTHER (SEE COMMENTS) Muscle pain [facility] BACTRIM RASH [facility] MEVACOR NOT INDICATED [facility] Problems Problem Status Onset Date Problem Type Date of Resolution Source Status post right knee replacement active EncounterDiagnosisAct HH CCT Hyperlipidemia, unspecified active ProblemAct [facility] Transient global amnesia active EncounterDiagnosisAct [facility] H Amnesia active 2023-09-22 ProblemAct [facility] N Unspecified contact dermatitis, unspecified cause active 2023-08-07 ProblemAct [facility] Encounters Encounter Type Encounter Reason Primary Diagnosis Location Date Ambulatory Qnekt 01/19/20 25 Ambulatory Presence of right artificial knee joint Presence of right artificial knee joint Qnekt 01/19/20 25 Ambulatory Qnekt 04/20/19 25 Ambulatory Presence of right artificial knee joint Presence of right artificial knee joint Qnekt 04/20/19 25 Ambulatory Acute sinusitis, unspecified Acute sinusitis, unspecified Qnekt 01/17/20 24 Ambulatory Qnekt 01/06/20 24 Ambulatory Presence of right artificial knee joint Presence of right artificial knee joint Qnekt 01/06/20 24 Ambulatory Presence of right artificial knee joint Presence of right artificial knee joint Qnekt 11/10/19 24 Ambulatory Qnekt 10/06/19 24 Ambulatory Presence of right artificial knee joint Presence of right artificial knee joint Qnekt 10/06/19 24 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 [facility] 09/22/19 24 Emergency Transient global amnesia Transient global amnesia [facility] 09/22/19 24 Ambulatory Presence of right artificial knee joint Presence of right artificial knee joint Qnekt 06/02/19 24 Ambulatory Presence of right artificial knee joint Presence of right artificial knee joint Qnekt 06/02/19 24 Ambulatory Other specified postprocedural states Other specified postprocedural states Qnekt 04/07/19 24 Ambulatory CREATE [facility] 03/24/19 24 Ambulatory Presence of right artificial knee joint Presence of right artificial knee joint Qnekt 03/03/20 23 Ambulatory Presence of right artificial knee joint Presence of right artificial knee joint Qnekt 03/03/20 23 Ambulatory Presence of right artificial knee joint Presence of right artificial knee joint Qnekt 01/28/20 23 Ambulatory Presence of right artificial knee joint Presence of right artificial knee joint Qnekt 01/28/20 23 Ambulatory [facility] 01/08/20 23 Ambulatory Unilateral post-traumatic osteoarthritis, right knee Unilateral post-traumatic osteoarthritis, right knee Qnekt 01/07/20 23 Ambulatory Pain in right knee Pain in right knee [facility] 11/06/19 23 Ambulatory Unilateral post-traumatic osteoarthritis, right knee Unilateral post-traumatic osteoarthritis, right knee Qnekt 11/06/19 23 Care Team Organization Name Specialty Phone Email Start Date End Da te Qnekt [facility] 01/18/2025 02/16/2025 Qnekt JACKIE DONOVAN Primary Care 01/17/2025 [facility] 09/22/2023 [facility], [facility] 03/24/202303/24 [facility] 01/11/2023 01/11/2023 [facility] 01/07/2023 01/27/2025 [facility] Jackie Flores [place] [facility] 01/07/2023 01/07/2023 [facility] JACKIE DONOVAN Primary Care 11/05/2022 02/16/2025 [place] [facility] 11/05/2022 11/05/2022 [facility] Jackie Donovan [facility] 11/05/2022 11/05/2022
--- OUTSIDE RECORDS SUMMARY | 2025-02-28 12:35 | XMS_ITS | Clinical Summary ---
Author Organization [facility] Address [address] [place] [address] Care Team Providers Care Tube Backer Name Role Phone Jackie Donovan NP Primary Care Provider [phone] Allergies Active Allergy Reactions Criticality Noted Date Comments Lovastatin Other (See Comments) 01/06/2023 Muscle pain Sulfa Antibiotics Rash/Dermatitis Low 01/06/2023 Medications SUPPLY DME MISCIndications:Pr imary osteoarthritis of right knee RAISED TOILET SEAT CANE DURATION: 99 1 each 3 Active ondansetron (ZOFRAN) 4 MG tabletIndications: S/P total knee replacement, right Take 1 tablet (4 mg total) by mouth 3 times daily (every 8 hours) as needed for nausea or vomiting. 20 tablet 3 Active senna-docusate (SENNA-S) 8.6-50 MGIndications:S/P total knee replacement, right Take 2 tablets by mouth nightly as needed for constipation. 30 tablet 3 Active rivaroxaban (XARELTO) 10 MG tabletIndications: S/P total knee replacement, right Take 1 tablet (10 mg total) by mouth daily. 28 tablet 3 Active HYDROmorphone (DILAUDID) 2 MG tabletIndications: S/P total knee replacement, right Take 1 tablet (2 mg total) by mouth 4 times daily (every 6 hours) as needed (pain). Max Daily Amount: 8 mg 28 tablet 3 Active meloxicam (MOBIC) 15 MG tabletIndications: S/P total knee replacement, right Take 1 tablet (15 mg total) by mouth daily. 30 tablet 3 Active aspirin enteric coated (ECOTRIN LOW STRENGTH) 81 MG EC tabletIndications: S/P surgical manipulation of knee joint Take 1 tablet (81 mg total) by mouth daily. 14 tablet 4 Active traMADol (ULTRAM) 50 MG tabletIndications: S/P surgical manipulation of knee joint Take 1 tablet (50 mg total) by mouth 4 times daily (every 6 hours) as needed for moderate pain or severe pain. 20 tablet 4 Active methocarbamol (ROBAXIN) 750 MG tabletIndications: S/P surgical manipulation of knee joint Take 1 tablet (750 mg total) by mouth 4 (four) times a day as needed for muscle spasms. 30 tablet 4 Active diclofenac (VOLTAREN) 1 % gelIndications:Sta tus post right knee replacement Apply topically 4 (four) times a day. Use dosing card to measure dose. Apply to entire affect area. 100 g 4 Active meloxicam (MOBIC) 15 MG tabletIndications: Status post right knee replacement TAKE 1 TABLET (15 MG TOTAL) BY MOUTH DAILY. 30 tablet 4 Active Active Problems No known active problems Encounters Date Type Department Care Team Description 01/18/2025 10:25 AM EST Ancillary Procedure [facility] [address] [address] Peter Avina MD 01/18/2025 10:00 AM EST Office Visit [facility] [address] [address] Peter Avina MD Status post right knee replacement (Primary Dx) from Last 3 Months Social History Tobacco Use Types Packs/Day Years Used Date Smoking Tobacco: Never Assessed Comments Unknown Sex and Gender Information Value Date Recorded Sex Assigned at Female 01/05/2023 11:37 AM EDT Legal Sex Female 8:46 PM EDT Gender Identity Female 01/05/2023 11:37 AM EDT Sexual Orientation Not on file Last Filed Vital Signs Vital Sign Reading Time Taken Comments Blood Pressure 139/74 01/17/2024 9:51 AM EST Pulse 63 01/17/2024 9:51 AM EST Temperature - - Respiratory Rate - - Oxygen Saturation 99% 01/17/2024 9:51 AM EST Inhaled Oxygen Concentration - - Weight - - Height - - Body Mass Index - - Plan of Treatment Upcoming Encounters Date Type Department Care Team (Late st Contact Info) Description 01/17/2026 10:15 AM EST Office Visit [facility] [address] [phone] Peter Avina MD [address] [place] [phone] Health Maintenance Due Date Last Done Comments Advance Care Planning 1955 Hepatitis C Virus Screening 1955 DTaP/Tdap/Td Vaccines (1 - Tdap) 1973 Mammogram 1994 Colonoscopy 12/23/1999 Pneumococcal Vaccines 50+ (1 of 1 - PCV) 2004 Zoster (Shingles) Vaccine (1 of 2) 2004 DXA Bone Density (Females,Ag es 65 and older) 12/23/2019 Influenza Vaccine 10/13/2024 COVID-19 Vaccine (2 - 2024-2 6 season) 2024 10/08/2020 RSV Vaccine 50 years and old er and Patients (1 - 1-dose 75+ series) 2029 Hepatitis B Vaccines Aged Out No long er eligible based on patient's age to complete this topic Procedures Procedure Name Priority Date/Time Associated Diagnosis Comments XR KNEE 3 VIEWS-RIGHT Routine 01/18/2025 10:48 AM EST Status post right knee replacement from Last 3 Months Results * XR Knee 3 views-Right (01/18/2025 10:48 AM EST) Narrative OAH - 01/18/2025 10:48 AM EST This exam was performed in office at [facility] and images reviewed by orthopedic provider. Any findings are documented within ambulatory encounter note on date of service. us Peter Avina MD IMG DIAGNOSTIC IMAGING ORDERABL ES Final Result OA from Last 3 Months Insurance [facility] [employer] MGD MEDICARE [facility] Care Teams Tube Backer Relationship Specialty Start Date End Date Jackie Donovan, BLOWER ROOM ATTENDANT [address] [place] [id number] PCP - General 11/05/22
--- OUTSIDE RECORDS SUMMARY | 2025-02-28 12:35 | XMS_ITS | Encounter Summary ---
Author Organization [facility] Address [address] [place] [id number] Care Team Providers Care Supervisor Detasseling Crew Name Role Phone Jackie Donovan CARDIAC REHAB NURSE Primary Care Provider [phone] Encounter Details Date Type Department Care Team (Late st Contact Info) Description 03/24/2023 Scanned Document Orth[facility] [address] [phone] Peter Avina MD [address] [place] [phone] Social History Tobacco Use Types Packs/Day Years [...] 01/17/2026 10:15 AM EST Office Visit [facility] [address] [phone] Peter Avina MD [address] [place] [id number] documented as of this encounter Visit Diagnoses Not on filedocumented in this encounter Care Teams Supervisor Detasseling Crew Relationship Specialty Start Date End Date Jackie Donovan CARDIAC REHAB NURSE [address] [place] [id number] PCP - General 11/05/22 documented as of this encounter
== END 2025-02-28 11:17 | disposition home or self-care (01) ==
LOC: HO.HSM 10:15
PROVIDERS: PCP Nurse Practitioner; Visit Provider Psychiatry & Neurology Neurology
DX: G30.9 Alzheimer's disease, unspecified (principal); F02.80 Dementia in other diseases classified elsewhere, unspecified severity, without behavioral disturbance, psychotic disturbance, mood disturbance, and anxiety
CPT/HCPCS: 99215